=== PATIENT | female | born 1950 | race Caucasian/White ===

== ENCOUNTER 2017-07-13 11:48 | Outpatient (CLI) | payer MEDICARE | END 2017-07-13 11:49 | disposition home or self-care (01) | LOC: BICMAMMO 11:48 | PROVIDERS: ATTEND Nurse Practitioner Family | DX: Z12.31 Encounter for screening mammogram for malignant neoplasm of breast (principal); N63.20 Unspecified lump in the left breast, unspecified quadrant; Z80.3 Family history of malignant neoplasm of breast | CPT/HCPCS: 77063; 77067 ==

== ENCOUNTER 2017-07-26 08:22 | Outpatient (CLI) | payer MEDICARE | END 2017-07-26 08:23 | disposition home or self-care (01) | LOC: BICULT 08:22 | PROVIDERS: ATTEND Nurse Practitioner Family | DX: N60.02 Solitary cyst of left breast (principal) ==

== ENCOUNTER 2019-01-10 14:25 | Outpatient (CLI) | payer MEDICARE ==
--- NOTE | 2019-01-10 15:01 | MMO ---
Bilateral MAMMO Bilat Screen [facility]. CLINICAL HISTORY: Patient is 69 years old and is seen for screening. The patient has the following family history of breast cancer: mother, at age 72. The patient has a history of colon cancer at age 58. VIEWS: The views performed were: bilateral craniocaudal with tomosynthesis and bilateral mediolateral oblique with tomosynthesis. FILMS COMPARED: The present examination has been compared to a prior imaging study performed at [facility] on 07/13/2017. This study has been interpreted with the assistance of computer-aided detection. MAMMOGRAM FINDINGS: There are scattered fibroglandular densities. There are stable benign appearing calcifications seen in both breasts. There are no suspicious masses, suspicious calcifications, or new areas of architectural distortion. IMPRESSION: THERE IS NO MAMMOGRAPHIC EVIDENCE OF MALIGNANCY. A ROUTINE FOLLOW-UP MAMMOGRAM IN 1 YEAR IS RECOMMENDED. THE RESULTS OF THIS EXAM WERE SENT TO THE PATIENT. ACR BI-RADS Category 2 - Benign finding MAMMOGRAPHY NOTE: 1. A negative mammogram report should not delay a biopsy if a dominant of clinically suspicious mass is present. 2. Approximately 10% to 15% of breast cancers are not detected by mammography. 3. Adenosis and dense breasts may obscure an underlying neoplasm. Reported by: OLIVIA DIEGO MD Electonically Signed: [id number]
== END 2019-01-10 14:26 | disposition home or self-care (01) ==
LOC: BICMAMMO 14:25
PROVIDERS: ATTEND Nurse Practitioner Family
DX: Z12.31 Encounter for screening mammogram for malignant neoplasm of breast (principal); Z85.038 Personal history of other malignant neoplasm of large intestine; Z80.3 Family history of malignant neoplasm of breast
CPT/HCPCS: 77063; 77067

== ENCOUNTER 2019-04-05 13:31 | Outpatient (CLI) | payer MEDICARE ==
--- NOTE | 2019-04-05 14:16 | BD ---
EXAM: Bone densitometry using DEXA HISTORY: 69 yo female. Screening for postmenopausal osteoporosis. A symptomatic menopausal state FINDINGS: L1--bone mineral density 1.153 g/sq cm; T score 1.5 ; Z score 3.2 L2--bone mineral density 1.035 g/sq cm; T score 1.9 ; Z score 3.8 L3--bone mineral density 1.241 g/sq cm; T score 1.4 ; Z score 3.5 L4--bone mineral density 1.083 g/sq cm; T score 0.2 ; Z score 2.3 Total L1-L4--bone mineral density 1.180 g/sq cm; T score 1.2 ; Z score 3.2 Left femoral neck--bone mineral density0.697; T score -1.4 ; Z score 0.3 Total proximal left femur--bone mineral density 0.924; T score -0.1 ; Z score 1.3 There has been an interval improvement of 0.9% in the BMD of the lumbar spine and a reduction of 3. 5% in the BMD of the proximal femur since the previous study of 01/29/2013. The 10 year fracture risk for a major osteoporotic fracture is 8.6% and for a hip fracture is 0.9%. IMPRESSION: Osteopenia
== END 2019-04-05 13:32 | disposition home or self-care (01) ==
LOC: BICMAMMO 13:31
PROVIDERS: ATTEND Nurse Practitioner Family
DX: Z13.820 Encounter for screening for osteoporosis (principal); Z78.0 Asymptomatic menopausal state; M85.89 Other specified disorders of bone density and structure, multiple sites
CPT/HCPCS: 77080

== ENCOUNTER 2020-06-30 15:29 | Outpatient (CLI) | payer MEDICARE | END 2020-06-30 15:30 | disposition home or self-care (01) | LOC: BICMAMMO 15:29 | PROVIDERS: ATTEND Family Medicine | DX: Z12.31 Encounter for screening mammogram for malignant neoplasm of breast (principal); R92.1 Mammographic calcification found on diagnostic imaging of breast; Z80.3 Family history of malignant neoplasm of breast; Z85.038 Personal history of other malignant neoplasm of large intestine; Z91.89 Other specified personal risk factors, not elsewhere classified | CPT/HCPCS: 77063; 77067 ==

== ENCOUNTER 2020-07-08 13:35 | Outpatient (CLI) | payer MEDICARE | END 2020-07-08 13:36 | disposition home or self-care (01) | LOC: BICMAMMO 13:35 | PROVIDERS: ATTEND Family Medicine | DX: R92.2 Inconclusive mammogram (principal) | CPT/HCPCS: 76642; 77065; G0279 ==

== ENCOUNTER 2023-11-16 12:52 | Outpatient (CLI) | payer MEDICARE | END 2023-11-16 12:53 | disposition home or self-care (01) | LOC: BICMAMMO 12:52 | PROVIDERS: ATTEND Nurse Practitioner Family | DX: Z12.31 Encounter for screening mammogram for malignant neoplasm of breast (principal); N63.21 Unspecified lump in the left breast, upper outer quadrant; R92.321 Mammographic fibroglandular density, right breast; Z80.3 Family history of malignant neoplasm of breast; Z91.89 Other specified personal risk factors, not elsewhere classified; Z85.038 Personal history of other malignant neoplasm of large intestine | CPT/HCPCS: 77067 ==

== ENCOUNTER 2023-11-21 14:23 | Outpatient (CLI) | payer MEDICARE | END 2023-11-21 14:24 | disposition home or self-care (01) | LOC: BICMAMMO 14:23 | PROVIDERS: ATTEND Nurse Practitioner Family | DX: R92.321 Mammographic fibroglandular density, right breast (principal) ==